=== PATIENT | female | born 2000 | race Caucasian/White ===

== ENCOUNTER → 2021-10-29 | Outpatient (REF) | payer BC ==
[2021-10-29 17:04] LABS: MAGNESIUM LEVEL 2.3 MG/DL (1.8-2.4); PHOSPHORUS LEVEL 2.6 MG/DL (2.5-4.9)
[2021-10-29 17:48] LABS: TOTAL 25(OH) VITAMIN D 7.8 NG/ML (30.0-100.0)
== END ==
LOC: M SFHCRHEU 15:34
PROVIDERS: ATTEND Internal Medicine
DX: M79.10 Myalgia, unspecified site (principal)

== ENCOUNTER 2023-04-18 15:38 | Inpatient (IN) | payer BC, OTHER ==
[~2023-04-18] VITALS: Ht 144.8 cm; Wt 56.8 kg
[2023-04-18 16:25] LABS: HEMATOCRIT 44.2 % (36.0-47.0); HEMOGLOBIN 14.6 g/dl (12.0-15.5); MEAN CORPUSCULAR VOLUME 90.8 fl (80.0-96.0); PLATELET COUNT, AUTOMATED 258 10^3/uL (150-450); RED BLOOD COUNT 4.87 10^6/uL (4.00-5.40)
[2023-04-18 16:42] LABS: ETHYL ALCOHOL (ETHANOL) < 0.003 % (0.000-0.010)
[2023-04-18 16:43] LABS: ACETAMINOPHEN LEVEL < 2.0 UG/ML (10.0-20.0); SALICYLATE LEVEL < 3.0 MG/DL (<30)
[2023-04-18 16:44] LABS: ALKALINE PHOSPHATASE 92 U/L (46-116); ALT/SGPT 11 U/L (7.0-40); AST/SGOT 10 U/L (<34); BILIRUBIN,DIRECT 0.2 MG/DL (<0.4); BILIRUBIN,TOTAL 0.7 MG/DL (0.3-1.2); BLOOD UREA NITROGEN 9 MG/DL (9-23); CALCIUM LEVEL 10.2 MG/DL (8.5-10.1); CARBON DIOXIDE LEVEL 22 MMOL/L (20-31); CHLORIDE LEVEL 107 MMOL/L (98-107); CREATININE FOR GFR 0.84 MG/DL (0.55-1.30); GLOMERULAR FILTRATION RATE > 60.0 (>60); GLUCOSE, FASTING 87 MG/DL (60-100); SODIUM LEVEL 138 MMOL/L (136-145)
[2023-04-18 16:46] LABS: THYROID STIMULATING HORMONE 0.936 uIU/ML (0.55-4.78)
[2023-04-18 16:55] LABS: AMPHETAMINES LEVEL URINE NEGATIVE (NEGATIVE); BARBITURATES URINE NEGATIVE (NEGATIVE); BENZODIAZEPINES URINE NEGATIVE (NEGATIVE); COCAINE METABOLITE URINE NEGATIVE (NEGATIVE); METHADONE URINE NEGATIVE (NEGATIVE); OPIATES URINE NEGATIVE (NEGATIVE); PHENCYCLIDINE URINE NEGATIVE (NEGATIVE)
[2023-04-18 17:00] LABS: CANNABINOIDS URINE POSITIVE (NEGATIVE)
[2023-04-18] MEDS ORDERED: IBUPROFEN 400MG TAB PO PRN (20:25)
[2023-04-18] MEDS ORDERED: NICOTINE 21MG/24HR 1 EA TRANSDERMAL TD PRN (20:25)
[2023-04-18] MEDS ORDERED: diphenhydrAMINE 25MG CAP PO PRN (20:25)
[2023-04-18] MEDS ORDERED: MAALOX 30 ML SUSP *UDC PO PRN (20:25)
[2023-04-18] MEDS ORDERED: LORazepam 1 MG TAB PO PRN (20:25)
[2023-04-18] MEDS ORDERED: MOM 30ML SUSPENSION UDC PO PRN (20:25)
[2023-04-18] MEDS ORDERED: ACETAMINOPHEN TAB 650MG DOSE (2X325MG) PO PRN (20:25)
[2023-04-18] MEDS ORDERED: MED REC IN PROGRESS XX SCH (21:10)
[2023-04-18] MEDS ORDERED: LARI1TAB9 PO (21:36)
[2023-04-18] MEDS ORDERED: HOME MED LIST COMPLETE! XX SCH (21:40)
[2023-04-18] MEDS: traZODone 50 MG TAB PO PRN (21:59)
[2023-04-18 22:07] VITALS: BP 123/81; TEMP 98; O2SAT 97
[2023-04-19 06:29] VITALS: BP 132/75; TEMP 98.4; O2SAT 95
[2023-04-19 17:06] VITALS: BP 131/83; TEMP 98.3; O2SAT 97
[2023-04-19 19:46] LABS: HEMATOCRIT 43.8 % (36.0-47.0); HEMOGLOBIN 14.4 g/dl (12.0-15.5); MEAN CORPUSCULAR HEMOGLOBIN 29.6 pg (27.0-33.0); MEAN CORPUSCULAR HGB CONC 32.9 g/dl (32.0-36.5); MEAN CORPUSCULAR VOLUME 90.1 fl (80.0-96.0); PLATELET COUNT, AUTOMATED 259 10^3/uL (150-450); RED BLOOD COUNT 4.86 10^6/uL (4.00-5.40); WHITE BLOOD COUNT 8.2 10^3/uL (4.0-10.0)
[2023-04-19] MEDS: traZODone 50 MG TAB PO PRN (20:24)
[2023-04-19] MEDS ORDERED: MIRTAZAPINE 15 MG TAB PO SCH (21:00)
[2023-04-20 06:07] VITALS: BP 132/64; TEMP 97.1; O2SAT 98
[2023-04-20] MEDS ORDERED: MIRT-10 PO (08:12)
== END 2023-04-20 15:00 | disposition home or self-care (01) | DRG 754 ==
LOC: M ED 15:38 → M ED INP 20:24 → M PSY 21:23
PROVIDERS: ADMIT Student in an Organized Health Care Education/Training Program; ATTEND Student in an Organized Health Care Education/Training Program
DX: F32.A Depression, unspecified (principal); F41.9 Anxiety disorder, unspecified; R45.851 Suicidal ideations; Z63.0 Problems in relationship with spouse or partner; M26.609 Unspecified temporomandibular joint disorder, unspecified side; G43.909 Migraine, unspecified, not intractable, without status migrainosus; Z79.899 Other long term (current) drug therapy; Z20.822 Contact with and (suspected) exposure to COVID-19; Z91.52 Personal history of nonsuicidal self-harm